=== PATIENT | female | born 1965 | race Caucasian/White ===

== ENCOUNTER 2021-03-30 14:18 | Emergency (ER) | payer OTHER ==
[~2021-03-30] VITALS: Ht 165.1 cm; Wt 61.2 kg
[2021-03-30 14:43] VITALS: BP 138/77
--- NOTE | 2021-03-30 15:32 | NUR ---
TIM POWELL, IN TO SEE PATIENT.
[2021-03-30] MEDS ORDERED: KETOROLAC TROMETHAMINE INJ 30 MG/ML VIAL ONE (15:48)
[2021-03-30] MEDS ORDERED: CYCLOBENZAPRINE 10 MG TABLET ONE (15:48)
--- NOTE | 2021-03-30 15:58 | NUR ---
PT PROVIDED W/ FOOD.
[2021-03-30] MEDS ORDERED: CYCLOBENZAPRINE 10 MG TABLET PO ONE (16:00)
[2021-03-30] MEDS ORDERED: KETOROLAC TROMETHAMINE INJ 60 MG/2 ML VIAL IM ONE (16:00)
[2021-03-30] MEDS ORDERED: HYDROCODONE/APAP 5/325MG TABLET PO ONE (16:30)
[2021-03-30] MEDS ORDERED: HYDROCODONE/APAP 5/325MG TABLET ONE (16:36)
--- NOTE | 2021-03-30 16:41 | NUR ---
urine collected and sent to lab.
[2021-03-30 17:04] LABS: BILIRUBIN,URINE Negative (NEGATIVE); COLOR,URINE YELLOW (YELLOW); LEUKOCYTE ESTERASE ,URINE Negative (NEGATIVE); NITRITE, URINE Negative (NEGATIVE); PH,URINE 5.5 (5.0-8.0); PROTEIN,URINE Negative (NEGATIVE); UGLUCOSE Negative (NEGATIVE); UROBILINOGEN,URINE 0.2 EU/dL (0.2)
[2021-03-30] MEDS ORDERED: NAPR-1164 PO (17:24)
[2021-03-30] MEDS ORDERED: METH-647 GT (17:24)
[2021-03-30 17:32] LABS: BACTERIA,URINE Few /HPF (None Seen); SQUAMOUS EPITHELIAL CELL,UR Few /HPF (None Seen)
--- NOTE | 2021-03-30 19:21 | NUR ---
PROVIDED W/ TAXI VOUCHER. DISCHARGE IN STABLE CONDITION.
== END 2021-03-30 19:21 | disposition home or self-care (01) ==
LOC: ER 14:24
DX: M54.5 Low back pain (principal); F60.0 Paranoid personality disorder; M53.3 Sacrococcygeal disorders, not elsewhere classified; R31.0 Gross hematuria; F99 Mental disorder, not otherwise specified; Z59.0 Homelessness
CPT/HCPCS: 81001; 96372; 99283; J1885